=== PATIENT | male | born 1950 | race Caucasian/White ===

== ENCOUNTER 2021-02-15 13:55 | Outpatient (CLI) | payer OTHER, MEDICARE, SELFPAY ==
--- NOTE | 2021-02-15 14:02 | XR_ITS ---
WS: [id number] DEXA (DUAL ENERGY X-RAY ABSORPTIOMETRY) Bone mineral density was performed using a [employer] machine. HISTORY: OTHER SPECIFIED DISORDER OF BONE DENSITY COMPARISON: None available. Lumbar spine BMD (L1-L4): 1.419 g/cm2 T score: 1.7 Z score: 1.9 Total hip BMD: Left: 1.040 g/cm2. T score: -0.4 Z score: 0.2 Right: 1.056 g/cm2. T score: -0.3 Z score: 0.3 10 year probability of a major osteoporotic fracture is 12%. XR/XR DEXA axial skeleton* 49699 IMPRESSION: NORMAL BONE MINERAL DENSITY based upon the WHO classification for females.
== END 2021-02-15 13:56 | disposition home or self-care (01) ==
PROVIDERS: PCP Internal Medicine; Visit Provider Internal Medicine
DX: M85.88 Other specified disorders of bone density and structure, other site (principal)
CPT/HCPCS: 77080

== ENCOUNTER → 2021-02-21 14:58 | Outpatient (BNVA) | payer OTHER, MEDICARE, SELFPAY | PROVIDERS: PCP Internal Medicine; Referring Provider Internal Medicine; Visit Provider Podiatrist Foot & Ankle Surgery | DX: M79.671 Pain in right foot (principal) | CPT/HCPCS: 73630 ==

== ENCOUNTER 2021-03-18 07:49 | Outpatient (CLI) | payer OTHER, MEDICARE, SELFPAY ==
--- NOTE | 2021-03-18 08:00 | US_ITS ---
WS: [id number] ULTRASOUND SOFT TISSUES RIGHT foot. HISTORY: foot pain COMPARISON: None available. TECHNIQUE: 2-D and color Doppler imaging is submitted. Ultrasound directed to the area of pain between the third and fourth metatarsal heads. There is a miriam y vague area of decreased echogenicity between the third and fourth metatarsals measuring 5 x 5 mm. N o increased vascularity. No adjacent fluid. US/US soft tissue/extremity [id number] IMPRESSION: 1. Hypoechoic nodule between the third and fourth metatarsal heads measures 5 x 5 mm. No increased vascularity. 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 By history patient had a prior neuroma removed. This also could represent scar or fibrosis.
== END 2021-03-18 07:50 | disposition home or self-care (01) ==
LOC: US 07:51
PROVIDERS: PCP Internal Medicine; Visit Provider Podiatrist Foot & Ankle Surgery
DX: M79.673 Pain in unspecified foot (principal)
CPT/HCPCS: 76882

== ENCOUNTER 2021-03-29 14:50 | Outpatient (CLI) | payer OTHER, MEDICARE, SELFPAY | END 2021-03-29 14:51 | disposition home or self-care (01) | LOC: SPT 14:51 | PROVIDERS: PCP Internal Medicine; Visit Provider Podiatrist Foot & Ankle Surgery | DX: Z46.89 Encounter for fitting and adjustment of other specified devices (principal); G57.61 Lesion of plantar nerve, right lower limb | CPT/HCPCS: 97760; L3030 ==